=== PATIENT | male | born 1985 | race African-American/Black ===

== ENCOUNTER 2024-12-14 15:08 | Emergency (ER) | payer SELFPAY ==
[~2024-12-14] VITALS: Ht 177.8 cm; Wt 79.0 kg
[2024-12-14 15:17] VITALS: TEMP 36.9; O2SAT 99
[2024-12-14 18:06] LABS: BASOPHILS % 1.0 % (0.0-2.0); EOSINOPHILS % 0.8 % (0.0-5.0); HEMATOCRIT. 37.6 % (42.0-52.0); HEMOGLOBIN. 12.1 g/dL (14.0-18.0); LYMPHOCYTES % 36.4 % (20.0-50.0); MEAN PLATELET VOLUME 8.0 fl (7.4-10.4); MONOCYTES % 5.4 % (2.0-8.0); NEUTROPHILS % 56.4 % (40.0-76.0); PLATELET 189 x1000/uL (130-400); RED BLOOD CELL COUNT 4.18 mill/uL (4.7-6.1); RED CELL DISTRIBUTION WIDTH 13.0 % (11.6-14.6)
[2024-12-14 18:22] LABS: CREATININE 1.1 mg/dL (0.6-1.3); UREA NITROGEN BLOOD 6 mg/dL (9-23)
[2024-12-14 18:23] LABS: TROPONIN I HIGH SENSITIVITY 8 ng/L (3.0-53)
[2024-12-14 20:11] LABS: TROPONIN I HIGH SENSITIVITY 7 ng/L (3.0-53)
[2024-12-14 20:13] VITALS: BP 137/79; PULSE 50; RESP 12; O2SAT 100
== END 2024-12-14 20:20 | disposition home or self-care (01) ==
LOC: ER 15:08
DX: R60.0 Localized edema (principal)
CPT/HCPCS: 36415; 71045; 80048; 83880; 84484; 85025; 93005; 93970; 99285